=== PATIENT | male | born 1955 | race Two or more races ===

== ENCOUNTER 2016-05-12 15:03 | Inpatient (IN) | payer SELFPAY ==
[~2016-05-12] VITALS: Ht 188 cm; Wt 114.0 kg
[2016-05-12 15:26] LABS: Basophils # (auto) 0.1 uL; DEFINITIVE VIEW TRANSMISSION; Eosinophils # (auto) 0.1 uL; Hemoglobin 13.2 g/dL (13.5-17.5); Lymphocytes # (auto) 1.3 uL
[2016-05-12 15:29] LABS: Basophils % (auto) 0.6 % (0.0-2.0); Eosinophils % (auto) 1.3 % (0.0-7.0); Hematocrit 40.4 % (41.0-53.0); Lymphocytes % (auto) 15.1 % (10.0-50.0); Mean Corpuscular Hemoglobin 26.6 pg (28.0-32.0); Mean Corpuscular Hgb Conc. 32.7 g/dL (32.0-36.0); Mean Corpuscular Volume 81.4 fL (80.0-100.0); Mean Platelet Volume 8.2 fL (7.4-10.4); Monocytes % (auto) 11.7 % (0.0-12.0); Neutrophils # (auto) 6.1 uL; Neutrophils % (auto) 71.3 % (37.0-80.0); Platelet Count (auto) 275 10^3/uL (140-450); Red Cell Distribution Width 16.4 % (11.6-16.0); White Blood Cell 8.6 10^3/uL (4.4-10.8)
[2016-05-12 16:05] LABS: BUN/Creatinine Ratio 28.3; Calcium 9.5 mg/dL (8.5-10.1); Magnesium 2.4 mg/dL (1.6-2.6); Potassium 4.5 mmol/L (3.5-5.1)
[2016-05-12] MEDS ORDERED: ALBUTEROL SULF 2.5 MG/0.5ML(0.5%) NEB SOLN NEB ONE (16:45)
[2016-05-12] MEDS ORDERED: IPRATROPIUM BROM 0.5 MG/2.5ML INH SOL NEB ONE (16:45)
[2016-05-12] MEDS ORDERED: FUROSEMIDE 40 MG/4 ML VIAL ONE (16:55)
[2016-05-12] MEDS ORDERED: ASPirin 81 mg TAB ONE (16:55)
[2016-05-12] MEDS ORDERED: SODIUM CHLORIDE 0.9% 1,000 ML IV ONE (16:57)
[2016-05-12] MEDS ORDERED: FUROSEMIDE 40 MG/4 ML VIAL IV ONE (17:00)
[2016-05-12] MEDS ORDERED: ASPirin 325 MG TAB PO ONE (17:00)
[2016-05-12] MEDS ORDERED: SPIRONOLACTONE 25 MG TAB PO ONE (17:00)
[2016-05-12 17:45] LABS: INR 1.33 (0.9-1.15); Partial Thromboplastin Time 25.3 sec (22.64-33.71); Prothrombin Time 13.7 sec (9.37-12.3)
[2016-05-12 17:52] LABS: Albumin 3.5 g/dL (3.4-5.0); Total Protein 7.7 g/dL (6.4-8.2)
[2016-05-12 18:27] LABS: B-Type Natriuretic Peptide 1355.72 pg/mL (0-100); Temperature: 23.1 C (20.0-25.0)
[2016-05-12 18:33] LABS: Bilirubin, Direct 0.4 mg/dL (0-0.2)
[2016-05-12] MEDS ORDERED: cloNIDine HCL 0.1 MG TAB PO ONE (19:15)
[2016-05-12] MEDS ORDERED: ACETAMINOPHEN 500 MG TAB PO PRN (19:30)
[2016-05-12] MEDS ORDERED: NITROGLYCERIN 0.4 MG SL TAB SL PRN (19:30)
[2016-05-12] MEDS ORDERED: PROMETHAZINE HCL 25 MG/ML 1ML IV PRN (19:30)
[2016-05-12] MEDS ORDERED: LACTULOSE 20Gm/30ML SOLN PO PRN (19:30)
[2016-05-12] MEDS ORDERED: DEXTROSE (50%) 50ML SYRG IV PRN (19:30)
[2016-05-12] MEDS ORDERED: TEMAZEPAM 15 MG CAP PO PRN (19:30)
[2016-05-12] MEDS ORDERED: MORPHINE SULF INJ 2 MG/ML SYRINGE 1ML IV PRN ×2 (19:30)
[2016-05-12] MEDS ORDERED: ENOXAPARIN SOD 40 MG/0.4 ML SYRINGE SC ONE (19:36)
[2016-05-12 20:50] VITALS: BP 147/83
[2016-05-12 21:30] VITALS: BP 147/83
[2016-05-12 22:00] VITALS: BP 147/83
[2016-05-12] MEDS: SODIUM CHLOR 0.9% PF (SALINE LOCK) 10ML VIAL IV SCH (22:05)
[2016-05-12] MEDS: ACCU-CHEK COMFORT CURVE STRIP VI SCH (22:27)
[2016-05-12] MEDS: CARVEDILOL 3.125 MG TAB PO SCH (22:28)
[2016-05-12] MEDS: InsuLIN REG 1unit/0.01ml Soln (100units/ml) SC SCH (22:39)
[2016-05-12] MEDS ORDERED: FURO20TA PO (23:52)
[2016-05-12] MEDS ORDERED: ASPI81CH59 PO (23:52)
[2016-05-12 23:56] VITALS: BP 117/89
[2016-05-13] MEDS: LORazepam 0.5 MG TAB PO PRN ×3 (00:05→15:04)
[2016-05-13] MEDS ORDERED: IPRATROPIUM BROM 0.5 MG/2.5ML INH SOL ONE (00:52)
[2016-05-13] MEDS ORDERED: ALBUTEROL SULF 2.5 MG/0.5ML(0.5%) NEB SOLN ONE (00:52)
[2016-05-13 03:50] VITALS: BP 142/86
[2016-05-13] MEDS: SODIUM CHLOR 0.9% PF (SALINE LOCK) 10ML VIAL IV SCH ×3 (05:44→21:16)
[2016-05-13] MEDS: IPRATROPIUM BROM 0.5 MG/2.5ML INH SOL NEB PRN ×3 (06:01→18:19)
[2016-05-13] MEDS: ALBUTEROL SULF 2.5 MG/0.5ML(0.5%) NEB SOLN NEB PRN ×3 (06:02→18:18)
[2016-05-13 06:44] LABS: Basophils # (auto) 0 uL; Basophils % (auto) 0.5 % (0.0-2.0); DEFINITIVE VIEW TRANSMISSION; Eosinophils # (auto) 0.2 uL; Eosinophils % (auto) 2.7 % (0.0-7.0); Hematocrit 39.2 % (41.0-53.0); Hemoglobin 12.5 g/dL (13.5-17.5); Lymphocytes # (auto) 1.1 uL; Lymphocytes % (auto) 13.2 % (10.0-50.0); Mean Corpuscular Hemoglobin 26.3 pg (28.0-32.0); Mean Corpuscular Volume 82.1 fL (80.0-100.0); Mean Platelet Volume 8.3 fL (7.4-10.4); Monocytes # (auto) 0.9 uL; Monocytes % (auto) 9.9 % (0.0-12.0); Neutrophils # (auto) 6.3 uL; Neutrophils % (auto) 73.7 % (37.0-80.0); Platelet Count (auto) 248 10^3/uL (140-450); White Blood Cell 8.6 10^3/uL (4.4-10.8)
[2016-05-13] MEDS: InsuLIN REG 1unit/0.01ml Soln (100units/ml) SC SCH ×4 (06:44→21:59)
[2016-05-13] MEDS: ACCU-CHEK COMFORT CURVE STRIP VI SCH ×4 (06:44→21:16)
[2016-05-13 07:41] LABS: Albumin 3.1 g/dL (3.4-5.0); BUN/Creatinine Ratio 27.8; Calcium 8.5 mg/dL (8.5-10.1); Potassium 3.9 mmol/L (3.5-5.1); Total Protein 6.9 g/dL (6.4-8.2)
[2016-05-13 07:47] VITALS: BP 154/105
[2016-05-13] MEDS ORDERED: IOHEXOL 350 MG/ML 100ML IJ ONE (08:30)
[2016-05-13 08:40] LABS: B-Type Natriuretic Peptide 1096.86 pg/mL (0-100)
[2016-05-13] MEDS: NITROGLYCERIN 0.2MG/HR TOPICAL PATCH TD SCH (09:58)
[2016-05-13] MEDS: POTASSIUM CHL 20 Meq TABLET PO SCH (09:59)
[2016-05-13] MEDS: ASPirin 81 mg TAB PO SCH (09:59)
[2016-05-13] MEDS: ENALAPRIL MALEATE 2.5 MG TAB PO SCH (09:59)
[2016-05-13] MEDS: ENOXAPARIN SOD 40 MG/0.4 ML SYRINGE SC SCH (09:59)
[2016-05-13] MEDS: CARVEDILOL 3.125 MG TAB PO SCH (10:00)
[2016-05-13] MEDS ORDERED: FUROSEMIDE 40 MG/4 ML VIAL IV SCH (10:00)
[2016-05-13 11:39] VITALS: BP 152/98
[2016-05-13] MEDS ORDERED: DIGOXIN 0.25 MG TAB PO ONE (14:15)
[2016-05-13] MEDS: HYDROcodone-ACET 5/325MG TAB PO PRN (15:04)
[2016-05-13 16:00] VITALS: BP 138/89
[2016-05-13] MEDS: SPIRONOLACTONE 25 MG TAB PO SCH (18:00)
[2016-05-13 19:50] LABS: Calcium 8.5 mg/dL (8.5-10.1); Potassium 4.1 mmol/L (3.5-5.1)
[2016-05-13 20:00] VITALS: BP 158/112
[2016-05-13 20:34] VITALS: BP 138/89
[2016-05-13] MEDS: FUROSEMIDE 40 MG/4 ML VIAL IV SCH (21:16)
[2016-05-14 00:04] VITALS: BP 165/85
[2016-05-14] MEDS: LORazepam 0.5 MG TAB PO PRN ×3 (01:55→23:56)
[2016-05-14] MEDS: SODIUM CHLOR 0.9% PF (SALINE LOCK) 10ML VIAL IV SCH ×4 (05:02→23:56)
[2016-05-14] MEDS: SPIRONOLACTONE 25 MG TAB PO SCH ×2 (05:02→18:20)
[2016-05-14] MEDS: InsuLIN REG 1unit/0.01ml Soln (100units/ml) SC SCH ×4 (06:10→21:48)
[2016-05-14] MEDS: ACCU-CHEK COMFORT CURVE STRIP VI SCH ×4 (06:10→21:00)
[2016-05-14] MEDS: ENOXAPARIN SOD 40 MG/0.4 ML SYRINGE SC SCH (10:12)
[2016-05-14] MEDS: NITROGLYCERIN 0.2MG/HR TOPICAL PATCH TD SCH (10:12)
[2016-05-14] MEDS: ASPirin 81 mg TAB PO SCH (10:15)
[2016-05-14] MEDS: ENALAPRIL MALEATE 2.5 MG TAB PO SCH (10:16)
[2016-05-14] MEDS: FUROSEMIDE 40 MG/4 ML VIAL IV SCH (10:16)
[2016-05-14] MEDS: POTASSIUM CHL 20 Meq TABLET PO SCH (10:16)
[2016-05-14] MEDS: DIGOXIN 0.25 MG TAB PO SCH (10:17)
[2016-05-14] MEDS: NICOTINE 7MG/24HR TOPICAL PATCH TD SCH (18:21)
[2016-05-14 19:56] VITALS: BP 144/92
[2016-05-15] MEDS: IPRATROPIUM BROM 0.5 MG/2.5ML INH SOL NEB PRN ×2 (01:41→21:25)
[2016-05-15] MEDS: ALBUTEROL SULF 2.5 MG/0.5ML(0.5%) NEB SOLN NEB PRN ×3 (01:41→21:25)
[2016-05-15] MEDS: SPIRONOLACTONE 25 MG TAB PO SCH ×2 (05:16→18:26)
[2016-05-15] MEDS: InsuLIN REG 1unit/0.01ml Soln (100units/ml) SC SCH ×4 (05:49→20:04)
[2016-05-15] MEDS: ACCU-CHEK COMFORT CURVE STRIP VI SCH ×4 (05:50→19:50)
[2016-05-15 06:55] LABS: BUN/Creatinine Ratio 23.7; Calcium 8.4 mg/dL (8.5-10.1); Potassium 4.1 mmol/L (3.5-5.1)
[2016-05-15] MEDS: POTASSIUM CHL 20 Meq TABLET PO SCH (08:58)
[2016-05-15] MEDS: ASPirin 81 mg TAB PO SCH (08:58)
[2016-05-15 09:00] VITALS: BP 157/97
[2016-05-15] MEDS: NITROGLYCERIN 0.2MG/HR TOPICAL PATCH TD SCH (09:00)
[2016-05-15] MEDS: NICOTINE 7MG/24HR TOPICAL PATCH TD SCH (09:00)
[2016-05-15] MEDS: DIGOXIN 0.25 MG TAB PO SCH (09:01)
[2016-05-15] MEDS: ENOXAPARIN SOD 40 MG/0.4 ML SYRINGE SC SCH (09:01)
[2016-05-15] MEDS: ENALAPRIL MALEATE 2.5 MG TAB PO SCH (09:02)
[2016-05-15 13:00] VITALS: BP 155/106
[2016-05-15] MEDS ORDERED: FUROSEMIDE 20 MG/2 ML VIAL IV ONE (13:45)
[2016-05-15] MEDS: SODIUM CHLOR 0.9% PF (SALINE LOCK) 10ML VIAL IV SCH ×2 (14:00→19:49)
[2016-05-15] MEDS: LORazepam 0.5 MG TAB PO PRN (14:19)
[2016-05-15 17:23] VITALS: BP 160/96
[2016-05-15 22:00] VITALS: BP 163/107
[2016-05-16] MEDS: HYDROcodone-ACET 5/325MG TAB PO PRN (01:50)
[2016-05-16] MEDS: IPRATROPIUM BROM 0.5 MG/2.5ML INH SOL NEB PRN (02:25)
[2016-05-16] MEDS: ALBUTEROL SULF 2.5 MG/0.5ML(0.5%) NEB SOLN NEB PRN (02:25)
[2016-05-16] MEDS: SODIUM CHLOR 0.9% PF (SALINE LOCK) 10ML VIAL IV SCH ×2 (05:49→14:00)
[2016-05-16] MEDS: SPIRONOLACTONE 25 MG TAB PO SCH (05:49)
[2016-05-16] MEDS: InsuLIN REG 1unit/0.01ml Soln (100units/ml) SC SCH ×2 (05:54→11:30)
[2016-05-16] MEDS: ACCU-CHEK COMFORT CURVE STRIP VI SCH ×2 (05:54→11:30)
[2016-05-16 06:00] VITALS: BP 137/93
[2016-05-16 07:46] LABS: Basophils # (auto) 0 uL; Basophils % (auto) 0.2 % (0.0-2.0); DEFINITIVE VIEW TRANSMISSION; Eosinophils # (auto) 0.2 uL; Eosinophils % (auto) 1.3 % (0.0-7.0); Hematocrit 39.1 % (41.0-53.0); Hemoglobin 12.5 g/dL (13.5-17.5); Lymphocytes # (auto) 0.8 uL; Lymphocytes % (auto) 5.8 % (10.0-50.0); Mean Corpuscular Hgb Conc. 31.9 g/dL (32.0-36.0); Mean Corpuscular Volume 81.4 fL (80.0-100.0); Mean Platelet Volume 7.8 fL (7.4-10.4); Monocytes # (auto) 1.4 uL; Monocytes % (auto) 9.8 % (0.0-12.0); Neutrophils # (auto) 11.8 uL; Neutrophils % (auto) 82.9 % (37.0-80.0); Platelet Count (auto) 227 10^3/uL (140-450); White Blood Cell 14.2 10^3/uL (4.4-10.8)
[2016-05-16 08:01] LABS: INR 1.2 (0.9-1.15); Prothrombin Time 12.4 sec (9.37-12.3)
[2016-05-16 08:20] LABS: Calcium 8.3 mg/dL (8.5-10.1); Magnesium 2.3 mg/dL (1.6-2.6)
[2016-05-16 08:23] LABS: BUN/Creatinine Ratio 17.4
[2016-05-16 09:00] VITALS: BP 156/110
[2016-05-16] MEDS: POTASSIUM CHL 20 Meq TABLET PO SCH (09:15)
[2016-05-16] MEDS: ASPirin 81 mg TAB PO SCH (09:16)
[2016-05-16] MEDS: NICOTINE 7MG/24HR TOPICAL PATCH TD SCH (09:17)
[2016-05-16] MEDS: NITROGLYCERIN 0.2MG/HR TOPICAL PATCH TD SCH (09:18)
[2016-05-16] MEDS: ENALAPRIL MALEATE 2.5 MG TAB PO SCH (09:19)
[2016-05-16] MEDS: DIGOXIN 0.25 MG TAB PO SCH (09:19)
[2016-05-16] MEDS: ENOXAPARIN SOD 40 MG/0.4 ML SYRINGE SC SCH (09:20)
[2016-05-16] MEDS ORDERED: FUROSEMIDE 20 MG/2 ML VIAL IV SCH (10:00)
[2016-05-16] MEDS: LORazepam 0.5 MG TAB PO PRN (11:52)
[2016-05-16 13:00] VITALS: BP 151/90
[2016-05-16] MEDS ORDERED: HYDROcodone-ACET 5/325MG TAB PO PRN (13:00)
[2016-05-16 14:12] VITALS: BP 156/110
== END 2016-05-16 15:00 | disposition home or self-care (01) | DRG 280 ==
LOC: ER 15:06 → TELE 15:07 → DOU IN ICU 20:56 → TELE-EAST 05-14 22:28
PROVIDERS: ADMIT Internal Medicine; ATTEND Internal Medicine Pulmonary Disease
DX: I21.4 Non-ST elevation (NSTEMI) myocardial infarction (principal); I50.41 Acute combined systolic (congestive) and diastolic (congestive) heart failure; I42.0 Dilated cardiomyopathy; I13.0 Hypertensive heart and chronic kidney disease with heart failure and stage 1 through stage 4 chronic kidney disease, or unspecified chronic kidney disease; E11.22 Type 2 diabetes mellitus with diabetic chronic kidney disease; F15.90 Other stimulant use, unspecified, uncomplicated; E66.01 Morbid (severe) obesity due to excess calories; J39.8 Other specified diseases of upper respiratory tract; N18.2 Chronic kidney disease, stage 2 (mild); I44.7 Left bundle-branch block, unspecified; F17.210 Nicotine dependence, cigarettes, uncomplicated; Z80.0 Family history of malignant neoplasm of digestive organs; Z80.1 Family history of malignant neoplasm of trachea, bronchus and lung; Z90.89 Acquired absence of other organs; Z68.32 Body mass index [BMI] 32.0-32.9, adult
CPT/HCPCS: 36415; 36600; 51702; 71010; 71275; 80048; 80053; 80061; 80076; 82140; 82550; 82805; 82962; 83036; 83735; 83880; 84443; 84484; 85025; 85379; 85610; 85652; 85730; 86141; 87081; 93005; 93306; 93970; 94640; 94761; 96372; 96374; G0434; J1815

== ENCOUNTER 2016-07-28 02:05 | Inpatient (IN) | payer SELFPAY ==
[~2016-07-28] VITALS: Ht 188 cm; Wt 107.6 kg
[~2016-07-28 02:05] MED LIST: ASPI81CH59 PO; FURO20TA PO
[2016-07-28 02:41] LABS: DEFINITIVE VIEW TRANSMISSION; Hematocrit 36.2 % (41.0-53.0); Hemoglobin 11.7 g/dL (13.5-17.5); Mean Corpuscular Hemoglobin 25.9 pg (28.0-32.0); Mean Corpuscular Hgb Conc. 32.3 g/dL (32.0-36.0); Mean Corpuscular Volume 80.3 fL (80.0-100.0); Mean Platelet Volume 8.9 fL (7.4-10.4); Platelet Count (auto) 167 10^3/uL (140-450); SUSPECT VIEW TRANSMISSION; White Blood Cell 9.7 10^3/uL (4.4-10.8)
[2016-07-28 02:44] LABS: Red Cell Distribution Width 25.8 % (11.6-16.0)
[2016-07-28 02:45] LABS: Metamyelocytes % 0; Myelocytes % 0; Promyelocytes % 0; Reactive Lymphocytes 0
[2016-07-28 02:54] LABS: Anisocytosis Moderate; Hypersegmented Neutrophils Present; Platelet Estimate Adequate
[2016-07-28 02:55] LABS: Microcytosis Slight; Ovalocytes FEW
[2016-07-28 02:56] LABS: INR 1.14 (0.9-1.15); Partial Thromboplastin Time 25.7 sec (22.64-33.71); Prothrombin Time 12.3 sec (9.37-12.3)
[2016-07-28 02:58] LABS: Temperature: 21.8 C (20.0-25.0)
[2016-07-28 03:04] LABS: Albumin 3.3 g/dL (3.4-5.0); BUN/Creatinine Ratio 31.2; Calcium 8.3 mg/dL (8.5-10.1); Potassium 4.5 mmol/L (3.5-5.1)
[2016-07-28 03:20] LABS: Bilirubin, Total 0.5 mg/dL (0.2-1.0); Total Protein 6.6 g/dL (6.4-8.2)
[2016-07-28] MEDS ORDERED: FUROSEMIDE 40 MG/4 ML VIAL IV ONE ×2 (04:30→09:30)
[2016-07-28] MEDS ORDERED: cloNIDine HCL 0.1 MG TAB PO PRN (06:30)
[2016-07-28] MEDS ORDERED: MORPHINE SULF INJ 2 MG/ML SYRINGE 1ML IV PRN (06:30)
[2016-07-28] MEDS ORDERED: NITROGLYCERIN 0.4 MG SL TAB SL PRN (06:30)
[2016-07-28] MEDS ORDERED: ACETAMINOPHEN 325 MG TAB PO PRN (06:30)
[2016-07-28] MEDS ORDERED: TEMAZEPAM 15 MG CAP PO PRN (06:30)
[2016-07-28] MEDS ORDERED: ONDANSETRON HCL 4 MG/2 ML VIAL IV PRN (06:30)
[2016-07-28] MEDS ORDERED: DEXTROSE (50%) 50ML SYRG IV PRN (06:30)
[2016-07-28] MEDS: SPIRONOLACTONE 25 MG TAB PO SCH (07:57)
[2016-07-28] MEDS: DIGOXIN 0.25 MG TAB PO SCH (07:57)
[2016-07-28] MEDS: ASPirin 81 mg TAB PO SCH (07:57)
[2016-07-28] MEDS: FAMOTIDINE 20 MG TAB PO SCH ×2 (07:58→21:35)
[2016-07-28] MEDS: ENALAPRIL MALEATE 2.5 MG TAB PO SCH (07:58)
[2016-07-28] MEDS: ENOXAPARIN SOD 40 MG/0.4 ML SYRINGE SC SCH (07:59)
[2016-07-28] MEDS: LABETALOL HCL 5 MG/ML 4ML SYRINGE IV PRN (09:14)
[2016-07-28 09:37] LABS: Blood 02Sat 94.6 % (96-100); Blood AaDO2 91.9 mmHg (<26.0); Blood MetHb 0.4 % (0.0-1.5); HCO3 19.5 mmol/L (22-26.0); MODE NASAL CANNULA; O2Hb 93.7 % (95.0-100.0); PCO2 38.4 mmHg (35.0-45.0); PO2 91.3 mmHg (65.0-85.0); Room 1014-ERT; Sample Type Arterial; pH 7.323 (7.350-7.450)
[2016-07-28 11:39] LABS: Blood COHb 0.6 % (0.5-1.5)
[2016-07-28] MEDS: InsuLIN REG 1unit/0.01ml Soln (100units/ml) SC SCH ×2 (12:00→17:32)
[2016-07-28] MEDS: ACCU-CHEK COMFORT CURVE STRIP VI SCH ×2 (12:16→17:32)
[2016-07-28] MEDS: FUROSEMIDE 20 MG TAB PO SCH (17:34)
[2016-07-28] MEDS: HYDROcodone-ACET 5/325MG TAB PO PRN ×2 (17:34→21:35)
[2016-07-28 19:00] VITALS: BP 154/93
[2016-07-28 20:00] VITALS: BP 154/93
[2016-07-28] MEDS ORDERED: ENAL2.5T PO (20:05)
[2016-07-28] MEDS ORDERED: DIGO0.2570 PO (20:05)
[2016-07-28] MEDS ORDERED: SPIR25TA89 PO (20:05)
[2016-07-28] MEDS ORDERED: LOR05T PO (20:05)
[2016-07-28 22:00] VITALS: BP 136/87
[2016-07-29] VITALS (7 sets, daily range): BP systolic 126–156; BP diastolic 85–101
[2016-07-29] MEDS: ACCU-CHEK COMFORT CURVE STRIP VI SCH ×5 (00:12→21:46)
[2016-07-29 05:05] LABS: DEFINITIVE VIEW TRANSMISSION; Hematocrit 36.9 % (41.0-53.0); Mean Corpuscular Hemoglobin 25.8 pg (28.0-32.0); Mean Corpuscular Hgb Conc. 32.5 g/dL (32.0-36.0); Mean Corpuscular Volume 79.4 fL (80.0-100.0); Mean Platelet Volume 8.3 fL (7.4-10.4); Platelet Count (auto) 199 10^3/uL (140-450); SUSPECT VIEW TRANSMISSION; White Blood Cell 9.3 10^3/uL (4.4-10.8)
[2016-07-29 05:12] LABS: Red Cell Distribution Width 26.3 % (11.6-16.0)
[2016-07-29 05:13] LABS: Metamyelocytes % 0; Myelocytes % 0; Promyelocytes % 0; Reactive Lymphocytes 0
[2016-07-29 05:30] LABS: Albumin 3.3 g/dL (3.4-5.0); Calcium 8.1 mg/dL (8.5-10.1); Magnesium 1.8 mg/dL (1.6-2.6); Potassium 3.7 mmol/L (3.5-5.1)
[2016-07-29 05:33] LABS: BUN/Creatinine Ratio 32.5
[2016-07-29] MEDS: InsuLIN REG 1unit/0.01ml Soln (100units/ml) SC SCH ×5 (05:44→21:46)
[2016-07-29] MEDS: FUROSEMIDE 20 MG TAB PO SCH ×2 (05:44→17:19)
[2016-07-29 05:49] LABS: Bilirubin, Total 0.8 mg/dL (0.2-1.0); Total Protein 6.4 g/dL (6.4-8.2)
[2016-07-29 06:42] LABS: Anisocytosis Moderate; Hypersegmented Neutrophils Present; Microcytosis Slight; Ovalocytes FEW; Platelet Estimate Adequate
[2016-07-29] MEDS: ASPirin 81 mg TAB PO SCH (08:16)
[2016-07-29] MEDS: DIGOXIN 0.25 MG TAB PO SCH (08:17)
[2016-07-29] MEDS: SPIRONOLACTONE 25 MG TAB PO SCH (08:18)
[2016-07-29] MEDS: ENOXAPARIN SOD 40 MG/0.4 ML SYRINGE SC SCH (08:18)
[2016-07-29] MEDS: ENALAPRIL MALEATE 2.5 MG TAB PO SCH (08:18)
[2016-07-29] MEDS: FAMOTIDINE 20 MG TAB PO SCH ×2 (08:18→21:46)
[2016-07-29] MEDS: HYDROcodone-ACET 5/325MG TAB PO PRN ×3 (08:21→17:18)
[2016-07-29] MEDS: LABETALOL HCL 5 MG/ML 4ML SYRINGE IV PRN (11:59)
[2016-07-29] MEDS ORDERED: DEXTROSE (50%) 50ML SYRG IV PRN (14:00)
[2016-07-29] MEDS ORDERED: POTASSIUM CHL 20 Meq TABLET PO ONE (14:00)
[2016-07-29] MEDS ORDERED: ENALAPRIL MALEATE 2.5 MG TAB PO ONE (14:00)
[2016-07-29] MEDS ORDERED: MAGNESIUM SULFATE 1GM/100ML 100 ML IV ONE (14:00)
[2016-07-29] MEDS ORDERED: IPRATROPIUM BROM 0.5 MG/2.5ML INH SOL NEB PRN (15:30)
[2016-07-29] MEDS ORDERED: MULTIPLE VITAMINS W/ MINERALS TAB PO SCH (17:06)
[2016-07-29] MEDS ORDERED: ASCORBIC ACID 500 MG TAB PO SCH (22:00)
[2016-07-30 05:11] VITALS: BP 149/80
[2016-07-30] MEDS: ACCU-CHEK COMFORT CURVE STRIP VI SCH (06:21)
[2016-07-30] MEDS: InsuLIN REG 1unit/0.01ml Soln (100units/ml) SC SCH (06:21)
[2016-07-30] MEDS: FUROSEMIDE 20 MG TAB PO SCH (06:22)
[2016-07-30 06:31] LABS: Albumin 3.2 g/dL (3.4-5.0); BUN/Creatinine Ratio 33.3; Calcium 8.1 mg/dL (8.5-10.1); Magnesium 2.2 mg/dL (1.6-2.6); Total Protein 6.8 g/dL (6.4-8.2)
[2016-07-30] MEDS ORDERED: ENALAPRIL MALEATE 2.5 MG TAB PO SCH (10:00)
== END 2016-07-30 07:20 | disposition left against medical advice (07) | DRG 291 ==
LOC: ER 02:05 → TELE 02:06 → TELE-EAST 19:18
PROVIDERS: ADMIT Nurse Practitioner; ATTEND Internal Medicine
DX: I13.0 Hypertensive heart and chronic kidney disease with heart failure and stage 1 through stage 4 chronic kidney disease, or unspecified chronic kidney disease (principal); I50.43 Acute on chronic combined systolic (congestive) and diastolic (congestive) heart failure; E11.22 Type 2 diabetes mellitus with diabetic chronic kidney disease; E11.621 Type 2 diabetes mellitus with foot ulcer; F17.210 Nicotine dependence, cigarettes, uncomplicated; L97.519 Non-pressure chronic ulcer of other part of right foot with unspecified severity; L97.529 Non-pressure chronic ulcer of other part of left foot with unspecified severity; N18.3 Chronic kidney disease, stage 3 (moderate); Z91.19 Patient's noncompliance with other medical treatment and regimen; F15.10 Other stimulant abuse, uncomplicated; Z80.9 Family history of malignant neoplasm, unspecified; Z80.1 Family history of malignant neoplasm of trachea, bronchus and lung; Z80.0 Family history of malignant neoplasm of digestive organs
CPT/HCPCS: 36415; 36600; 71010; 80053; 80162; 80307; 82805; 82962; 83036; 83735; 83880; 84484; 85007; 85027; 85610; 85730; 96374; 96376; J3490

== ENCOUNTER 2018-03-09 19:48 | Emergency (ER) | payer MEDICAID ==
[~2018-03-09] VITALS: Ht 188 cm; Wt 117.9 kg
[~2018-03-09 19:48] MED LIST changes: +CARV25TA55 PO; -FURO20TA PO; +FURO40TA4 PO; +LISI-646 PO; +SIMV-8 PO
[2018-03-09] MEDS ORDERED: SILVER SULFADIAZINE 1 % TOPICAL CREAM 50GM TOP ONE (21:30)
[2018-03-09 21:56] VITALS: BP 157/94
== END 2018-03-09 23:30 | disposition home or self-care (01) ==
LOC: ER 19:48 → EDBD 19:48 → ER 23:30
DX: T20.10XA Burn of first degree of head, face, and neck, unspecified site, initial encounter (principal); T31.0 Burns involving less than 10% of body surface; E11.9 Type 2 diabetes mellitus without complications; I11.0 Hypertensive heart disease with heart failure; I50.9 Heart failure, unspecified; F17.210 Nicotine dependence, cigarettes, uncomplicated; Z79.82 Long term (current) use of aspirin; Z79.899 Other long term (current) drug therapy; X08.8XXA Exposure to other specified smoke, fire and flames, initial encounter; Y93.89 Activity, other specified; Y99.8 Other external cause status; Y92.89 Other specified places as the place of occurrence of the external cause
CPT/HCPCS: 16000

== ENCOUNTER 2018-05-09 09:36 | Inpatient (IN) | payer SELFPAY ==
[~2018-05-09] VITALS: Ht 182.9 cm; Wt 116.9 kg
[2018-05-09] MEDS ORDERED: MORPHINE SULFATE 4 MG/ML SYR/VIAL IV ONE (10:15)
[2018-05-09] MEDS ORDERED: ONDANSETRON HCL 4 MG/2 ML VIAL IV ONE (10:15)
[2018-05-09 12:14] LABS: Basophils # (auto) 0.1 uL; Eosinophils # (auto) 0.2 uL; Mean Corpuscular Hemoglobin 29.2 pg (28.0-32.0); Monocytes % (auto) 6.4 % (0.0-12.0); Neutrophils # (auto) 12.3 uL
[2018-05-09 12:16] LABS: Basophils % (auto) 0.7 % (0.0-2.0); Eosinophils % (auto) 1.6 % (0.0-7.0); Hematocrit 51.5 % (41.0-53.0); Hemoglobin 17.6 g/dL (13.5-17.5); Lymphocytes # (auto) 1.2 uL; Lymphocytes % (auto) 8.4 % (10.0-50.0); Mean Corpuscular Hgb Conc. 34.2 g/dL (32.0-36.0); Mean Corpuscular Volume 85.4 fL (80.0-100.0); Monocytes # (auto) 0.9 uL; Neutrophils % (auto) 82.9 % (37.0-80.0); Nucleated Red Blood Cells % 0.9 %; Platelet Count (auto) 258 10^3/uL (140-450); Red Blood Cells 6.03 10^6/uL (4.5-5.90); Red Cell Distribution Width 14.1 % (11.8-14.3); White Blood Cell 14.8 10^3/uL (4.4-10.8)
[2018-05-09 12:29] LABS: INR 0.95 (0.9-1.15); Partial Thromboplastin Time 26.5 sec (23.78-33.04); Prothrombin Time 10.2 sec (9.27-12.13)
[2018-05-09 12:30] LABS: Magnesium 2.5 mg/dL (1.6-2.6); Potassium 3.8 mmol/L (3.5-5.1)
[2018-05-09 12:34] LABS: BUN/Creatinine Ratio 18.2; Bilirubin, Total 0.4 mg/dL (0.2-1.0); Total Protein 8.7 g/dL (6.4-8.2)
[2018-05-09] MEDS ORDERED: MORPHINE SULFATE 4 MG/ML SYR/VIAL IV PRN (15:00)
[2018-05-09] MEDS ORDERED: NITROGLYCERIN 0.4 MG SL TAB SL PRN (15:00)
[2018-05-09] MEDS ORDERED: HYDROcodone-ACET 5/325MG TAB PO PRN (15:00)
[2018-05-09] MEDS ORDERED: ONDANSETRON HCL 4 MG/2 ML VIAL IV PRN (15:00)
[2018-05-09] MEDS ORDERED: IPRATROPIUM BROM 0.5 MG/2.5ML INH SOL NEB SCH (15:00)
[2018-05-09] MEDS ORDERED: ACETAMINOPHEN 500 MG TAB PO PRN (15:00)
[2018-05-09] MEDS ORDERED: ALBUTEROL SULF 2.5 MG/0.5ML(0.5%) NEB SOLN NEB SCH (15:00)
[2018-05-09] MEDS ORDERED: hydrALAZINE HCL 20 MG/ML VL IV ONE (15:30)
[2018-05-09] MEDS ORDERED: CARVEDILOL 3.125 MG TAB PO ONE (15:30)
[2018-05-09 15:45] LABS: Alcohol, Urine < 3.0 mg/dL (0-5); Amphetamine Screen, Urine POSITIVE (NEGATIVE); Barbiturate Scree,Urine NEGATIVE (NEGATIVE); Benzodiazephine Screen, Urine NEGATIVE (NEGATIVE); Cannabinoid Screen, Urine NEGATIVE (NEGATIVE); Cocaine Screen, Urine NEGATIVE (NEGATIVE); Opiate Scree,Urine NEGATIVE (NEGATIVE); Phencyclidine Screen, Urine NEGATIVE (NEGATIVE)
[2018-05-09 15:47] LABS: Urine Bacteria NONE SEEN /hpf (None Seen); Urine Blood TRACE /uL (Negative); Urine Specific Gravity 1.022 (1.001-1.035); Urine WBC 1 /hpf (0 - 3)
[2018-05-09] MEDS: MORPHINE SULF INJ 2 MG/ML SYRINGE 1ML IV PRN ×2 (16:14→20:42)
[2018-05-09] MEDS: HYDROmorphone HCL 2 MG/ML VL IV PRN ×2 (17:05→21:51)
[2018-05-09] MEDS ORDERED: ATORVASTATIN 20 MG TAB PO SCH (18:00)
[2018-05-09] MEDS: IPRATROPIUM BROM 0.5 MG/2.5ML INH SOL NEB SCH (19:13)
[2018-05-09] MEDS: ALBUTEROL SULF 2.5 MG/0.5ML(0.5%) NEB SOLN NEB SCH (19:14)
--- NOTE | 2018-05-09 20:30 | NUR ---
OPENING NOTE RECEIVED PATIENT FROM ER. PATIENT SHOWING MILD DISTRESS DUE TO PAIN. NO SHORTNESS OF BREATH NOTED. PATIENT ORIENTED TO HOSPITAL AND PLAN OF CARE FOR THE NIGHT. PATIENT VERBALIZED UNDERSTANDING. PATIENT WILL BE GIVEN PAIN MEDICATION WHEN AVAILABLE. BED LOWERED, CALL LIGHT WITHIN REACH, AND PATIENT WILL BE ROUNDED ON EVERY HOUR AND NEEDED.
[2018-05-09 21:00] VITALS: BP 157/106
[2018-05-09] MEDS: CARVEDILOL 3.125 MG TAB PO SCH (22:35)
[2018-05-10] VITALS (7 sets, daily range): BP systolic 128–157; BP diastolic 58–113
[2018-05-10] MEDS: MORPHINE SULF INJ 2 MG/ML SYRINGE 1ML IV PRN ×2 (05:05→13:32)
[2018-05-10] MEDS: ALBUTEROL SULF 2.5 MG/0.5ML(0.5%) NEB SOLN NEB SCH ×5 (06:29→21:41)
[2018-05-10] MEDS: IPRATROPIUM BROM 0.5 MG/2.5ML INH SOL NEB SCH ×5 (06:29→21:41)
[2018-05-10 07:00] LABS: Basophils # (auto) 0.1 uL; Basophils % (auto) 0.9 % (0.0-2.0); Eosinophils # (auto) 0.3 uL; Eosinophils % (auto) 2.6 % (0.0-7.0); Hematocrit 47.5 % (41.0-53.0); Hemoglobin 16.1 g/dL (13.5-17.5); Lymphocytes # (auto) 1.2 uL; Lymphocytes % (auto) 12.1 % (10.0-50.0); Mean Corpuscular Hemoglobin 29.4 pg (28.0-32.0); Mean Corpuscular Volume 86.4 fL (80.0-100.0); Monocytes # (auto) 0.8 uL; Monocytes % (auto) 8.8 % (0.0-12.0); Neutrophils # (auto) 7.3 uL; Neutrophils % (auto) 75.6 % (37.0-80.0); Nucleated Red Blood Cells % 0.2 %; Platelet Count (auto) 221 10^3/uL (140-450); Red Cell Distribution Width 14.3 % (11.8-14.3); White Blood Cell 9.6 10^3/uL (4.4-10.8)
[2018-05-10 07:12] LABS: Magnesium 2.2 mg/dL (1.6-2.6)
--- NOTE | 2018-05-10 07:15 | NUR ---
Opening Shift Note Assumed care of patient, awake and alert. No S/S of distress/SOB or pain. Instructed on POC and to call for assist PRN, will continue to monitor for changes Q1hr and PRN. Bed locked in lowest position with two side rails up and call light in reach.
[2018-05-10 07:18] LABS: BUN/Creatinine Ratio 19.8; Calcium 8.4 mg/dL (8.5-10.1)
[2018-05-10] MEDS: HYDROmorphone HCL 2 MG/ML VL IV PRN ×2 (09:40→16:53)
[2018-05-10] MEDS: FUROSEMIDE 40 MG TAB PO SCH (09:42)
[2018-05-10] MEDS: ASPirin 81 mg TAB PO SCH (09:42)
[2018-05-10] MEDS: CARVEDILOL 3.125 MG TAB PO SCH ×2 (09:43→22:08)
[2018-05-10] MEDS: LISINOPRIL 20 MG TAB PO SCH (09:43)
[2018-05-10] MEDS ORDERED: cefTRIAXone 1GM/50ML D5W 50 ML IV SCH (10:00)
[2018-05-10] MEDS ORDERED: AZITHROMYCIN 500MG/ 250ML 250 ML IV SCH (10:00)
[2018-05-10] MEDS ORDERED: LORazepam 2MG/ML-1ML VIAL IV ONE (14:00)
--- NOTE | 2018-05-10 16:32 | NUR ---
SANCHEZ 16 FR INSERTED USING STERILE TECHNIQUE, PER ORDERS. PATIENT TOLERATED WELL NO SIGNS AND SYMPTOMS OF DISTRESS NOTED.
--- NOTE | 2018-05-10 19:05 | NUR ---
Opening Shift Note Bed side report with day LLUVIA Childs. Assumed care of patient, pt resting No S/S of distress/SOB or pain noted. Updated on POC and to call for assist PRN, will continue to monitor for changes Q1hr and PRN. Pt on 2 L NC, Bed locked and in lowest position, call light within reach.
--- NOTE | 2018-05-10 22:20 | NUR ---
CALLED FRONT END ALIGNMENT SPECIALIST Informed charge entry specialist in regards to pt change in status Altered, Pt was able to answer questions but then will state "i am home, or don't drop me", V/s Spo2 95 % T98.4, HR 86, RR 20 BP 144/89 will continue to monitor pt.
--- NOTE | 2018-05-10 22:27 | NUR ---
PAGED RT Paged RT in regards to CPAP initiation, will continue to monitor pt.
--- NOTE | 2018-05-10 22:27 | NUR ---
PAGED DR. ZAMBRANO will continue to monitor pt.
--- NOTE | 2018-05-10 22:28 | NUR ---
DR. ZAMBRANO CALL BACK Informed Dr. Zambrano in regards to change in status, Dr. lopez TELEPHONE ORDER READ BACK HALDOL 2.5 MG IM q8 PRN for agitation. will continue to monitor pt
[2018-05-10] MEDS ORDERED: HALOPERIDOL LACTATE 5 MG/ML INJ VIAL IM PRN (22:45)
--- NOTE | 2018-05-11 00:01 | NUR ---
PT REMOVED CPAP PT removed CPAP. reoriented pt reason for cpap. pt agreed to put CPAP back on. PT spo2 94%, HR 84 Will continue to monitor pt.
--- NOTE | 2018-05-11 00:48 | NUR ---
Respiratory note: RN CORINNA REMOVED PT OFF CPAP. PT STATED THAT IT FELT IF IT WAS SUCKING AIR OUT OF HIM AND WAS NO LONGER COMFORTABLE WITH IT ON. PT WAS PLACED BACK ON 2 L/M NC: HR 77, RR 20, SPO2 95%. PT SHOWS NO S/S OF ANY RESPIRATORY DISTRESS. WILL CONTINUE TO MONITOR.
--- NOTE | 2018-05-11 00:50 | NUR ---
PAGED RT PT felt uncomfortable with CPAP, Removed CPAP, paged RT
[2018-05-11] MEDS: MORPHINE SULF INJ 2 MG/ML SYRINGE 1ML IV PRN ×3 (03:09→16:30)
--- NOTE | 2018-05-11 03:10 | NUR ---
PT UNCOMFORTABLE Pt attempted to removed NC, was reinstructed to maintain oxygen on. PT accepted oxygen. Pt complaining pillow was sticking to him, pillowcase was off due to movement of pt, new pillowcases on with a draw sheet over to prevent from sticking to pt. Pt states temperature of room too hot, informed pt can remove one blanket and adjust temperature to a comfortable setting, pt stated no its ok. Pt states "will leave if continues to be uncomfortable" Asked pt what else can i do to help pt be more comfortable. Pt asked for pain med, let him know he does have pain med available will administer per MD order. Asked pt if would like to repositioned, pt stated no. will continue to monitor pt.
--- NOTE | 2018-05-11 03:42 | NUR ---
PT ROUNDS PT Resting, no s/sx's of distress or sob noted
[2018-05-11 05:00] VITALS: BP 123/76
--- NOTE | 2018-05-11 05:10 | NUR ---
TRANSPORT ENGINEER CALL Adhesive Bandage Making Operator Joshua Jones reported Blood culture tested Positive Grab Positive Cocci in clusters will page hospitalist
--- NOTE | 2018-05-11 05:14 | NUR ---
CALL FROM HOSPITALIST Inform hospitalist in regards to positive blood culture. Hospitalist will review patient's labs will continue to monitor pt.
[2018-05-11] MEDS: HYDROmorphone HCL 2 MG/ML VL IV PRN (06:10)
[2018-05-11] MEDS: ALBUTEROL SULF 2.5 MG/0.5ML(0.5%) NEB SOLN NEB SCH ×3 (07:09→19:33)
[2018-05-11] MEDS: IPRATROPIUM BROM 0.5 MG/2.5ML INH SOL NEB SCH ×3 (07:09→19:33)
--- NOTE | 2018-05-11 07:09 | NUR ---
RT NOTE: PT REFUSED TX AT THIS TIME. NO SIGNS OF RESPIRATORY DISTRESS NOTED. LUNG SOUNDS CLEAR DIMINISHED T/O. ON 2L NC SPO2 97 HR 88 RR 18. PT AWARE THAT I WILL RETURN FOR NEXT SCHEDULED TX. WILL CONTINUE TO MONITOR.
[2018-05-11 07:40] VITALS: BP 162/83
[2018-05-11] MEDS: ASPirin 81 mg TAB PO SCH (10:31)
[2018-05-11] MEDS: FUROSEMIDE 40 MG TAB PO SCH (10:32)
[2018-05-11] MEDS: CARVEDILOL 3.125 MG TAB PO SCH ×2 (10:33→22:07)
[2018-05-11] MEDS: LISINOPRIL 20 MG TAB PO SCH (10:33)
--- NOTE | 2018-05-11 10:35 | NUR ---
was at bedside - Dr. Jeronimo
--- NOTE | 2018-05-11 10:42 | NUR ---
Patient requesting to speak with his sister This RN called Neena, patient's sister, and transferred to phone call to bedside.
--- NOTE | 2018-05-11 11:53 | NUR ---
Patient's girlfriend called for update password obtained. Update given.
[2018-05-11 11:54] VITALS: BP 158/99
--- NOTE | 2018-05-11 13:40 | NUR ---
Patient requesting to speak with his sister Endorsed task to MALACHI Nava, to call patient's sister and transfer the phone call to the patient.
--- NOTE | 2018-05-11 15:23 | NUR ---
RE: ordered back brace Ordered back brace delivered to bedside. This RN educated the patient on the ordered back brace. Patient verbalized understanding.
--- NOTE | 2018-05-11 15:25 | NUR ---
Patient requesting to speak with his sister This RN called Neena, patient's sister. No answer. Voicemail left.
--- NOTE | 2018-05-11 15:27 | NUR ---
Educated patient on pressure ulcer prevention Patient able to turn self independently. This RN asked the patient if he needed assistance at this time with turning. Patient denied needing assistance. Educated patient on pressure ulcer prevention and maintaining skin integrity. Patient verbalized understanding. Patient is A&Ox4 at this time.
--- NOTE | 2018-05-11 15:55 | NUR ---
Visitors at bedside Patient's sister +2 additional visitors are at bedside. Patient's sister, Neena, updated on POC.
--- NOTE | 2018-05-11 16:15 | NUR ---
RE: Ortho - Dr. Sergio Hill was at bedside. This RN informed the MD that Dr. Jeronimo had contacted Dr. Arias for the consult. MD verbalized understanding.
[2018-05-11 16:37] VITALS: BP 145/93
--- NOTE | 2018-05-11 16:38 | NUR ---
Patient medicated for pain per MD- bed alarm on Patient is A&Ox4 at this time. Pain medication administered per MD's orders. VS stable. Bed alarm on for safety. Call light within reach. Will continue to monitor q1hr & PRN. No visitors at bedside at this time.
[2018-05-11] MEDS: CALCIUM W/VIT D (600MG/400IU) TAB PO SCH (18:38)
[2018-05-11] MEDS: ATORVASTATIN 20 MG TAB PO SCH (18:38)
--- NOTE | 2018-05-11 18:43 | NUR ---
End of shift patient resting in bed with even and unlabored respirations on 2LPM NC placed in his mouth. Fall precautions in place. Patient educated on the need to turn frequently to prevent pressure ulcers. Patient verbalized understanding. Fall precautions in place with call light within reach. Bed alarm on for safety. Bilateral SCDs in place per MD's order. Patient is A&Ox4 at this time. Will endorse care to RN.
--- NOTE | 2018-05-11 19:10 | NUR ---
OPENING SHIFT NOTE Patient resting in bed with even and unlabored respirations on 2LPM NC placed in nose. Patient Saturation levels 95%. Reinforced patient to maintain oxygen on at all times. Family members at bedside. Fall precautions in place. HOB elevated 2 x side rails up, bed locked and in lowest position, bed alarm on. Patient educated on the need to turn frequently to prevent pressure ulcers. Patient verbalized understanding. Bilateral SCDs in place per MD's order. Patient tolerating SCD's well. Patient is A&Ox4 at this time. will continue to monitor pt. .
[2018-05-11 21:49] VITALS: BP 139/68
[2018-05-12] MEDS: MORPHINE SULF INJ 2 MG/ML SYRINGE 1ML IV PRN ×2 (00:14→15:25)
[2018-05-12] MEDS ORDERED: LACTULOSE 20Gm/30ML SOLN PO ONE ×2 (00:30→10:30)
--- NOTE | 2018-05-12 00:37 | NUR ---
SPOKE WITH HOSPITALIST Spoke with hospitalist pt has not had a bm since the 05/09 , pt feels discomfort feels the need to go but has been unable to go, will continue to monitor pt.
[2018-05-12] MEDS: ALBUTEROL SULF 2.5 MG/0.5ML(0.5%) NEB SOLN NEB SCH ×4 (00:55→19:39)
[2018-05-12] MEDS: IPRATROPIUM BROM 0.5 MG/2.5ML INH SOL NEB SCH ×5 (00:55→20:09)
--- NOTE | 2018-05-12 03:04 | NUR ---
PT ROUNDS PT resting SPO2 98%, HR 86. will continue to monitor pt.
[2018-05-12 05:31] VITALS: BP 126/59
--- NOTE | 2018-05-12 06:08 | NUR ---
PT ROUNDS PT attempted to have a bm, but was unsuccessful. will continue to monitor pt.
--- NOTE | 2018-05-12 06:12 | NUR ---
PAGED RT Pt requesting a breathing treatment, will continue to monitor pt
[2018-05-12 07:02] LABS: Calcium 8.2 mg/dL (8.5-10.1)
--- NOTE | 2018-05-12 08:00 | NUR ---
Opening Shift Note Assumed care of patient, awake and alert. No S/S of distress/SOB or pain. Instructed on POC and to call for assist PRN, will continue to monitor for changes Q1hr and PRN. Quintana catheter present, hanging to gravity and free of kinks. Patient is on 2liters nasal cannula. Patient is saturating at 95%. Bilateral SCDs in place per MDs order. Bed is in the lowest position and call light within reach.
[2018-05-12 09:00] VITALS: BP 168/96
[2018-05-12] MEDS: CALCIUM W/VIT D (600MG/400IU) TAB PO SCH ×2 (09:24→18:18)
[2018-05-12] MEDS: ASPirin 81 mg TAB PO SCH (09:27)
[2018-05-12] MEDS: DOCUSATE SOD 100 MG CAP PO SCH ×2 (09:27→21:31)
[2018-05-12] MEDS: CARVEDILOL 3.125 MG TAB PO SCH ×2 (09:28→21:31)
[2018-05-12] MEDS: FUROSEMIDE 40 MG TAB PO SCH (09:28)
[2018-05-12] MEDS: LISINOPRIL 20 MG TAB PO SCH (09:29)
--- NOTE | 2018-05-12 11:00 | NUR ---
HOLD P.T. UNTIL BACK BRACE AND ANKLE SPLINT CAN BE APPLIED.
[2018-05-12 13:00] VITALS: BP 134/88
[2018-05-12 17:00] VITALS: BP 153/90
--- NOTE | 2018-05-12 18:17 | NUR ---
Right ankle splint placed by [facility] ortho patient tolerated well continue to monitor
[2018-05-12] MEDS: ATORVASTATIN 20 MG TAB PO SCH (18:18)
[2018-05-12 21:58] VITALS: BP 169/96
--- NOTE | 2018-05-12 23:18 | NUR ---
SHIFT OPENING NOTE Assumed care of patient, awake and alert and oriented x4. No S/S of distress/SOB or pain. Instructed on POC and to call for assist PRN, call light within reach. Side rails up x2. bed in lowest, locked position. nonskid socks on. bed alarm on. Right ankle splint in place and intact. will continue to monitor for changes Q1hr and PRN. Signed: 05/12/18 at 2320 by KETAN WEST SN <Co-Signature Required> Co-Signed: 05/12/18 at 2320 by Devonte Perez RN
[2018-05-13 05:23] VITALS: BP 147/90
[2018-05-13] MEDS: IPRATROPIUM BROM 0.5 MG/2.5ML INH SOL NEB SCH ×3 (06:06→18:55)
[2018-05-13] MEDS: ALBUTEROL SULF 2.5 MG/0.5ML(0.5%) NEB SOLN NEB SCH ×4 (06:06→18:55)
--- NOTE | 2018-05-13 07:50 | NUR ---
Patient in bed, awake, oriented x4. NS drip tubing not connected, right foot on splint, on Quintana catheter draining mar urine, left leg on SCD. Bed alarm on.
--- NOTE | 2018-05-13 08:20 | NUR ---
Patient stated he wants to go home. Explained to patient there's an order for Stress Test on Tuesday for Pre Op clearance.
[2018-05-13] MEDS: CALCIUM W/VIT D (600MG/400IU) TAB PO SCH ×2 (08:27→18:00)
--- NOTE | 2018-05-13 08:40 | NUR ---
Family member at bedside.
[2018-05-13 09:00] VITALS: BP 137/62
[2018-05-13] MEDS: MORPHINE SULF INJ 2 MG/ML SYRINGE 1ML IV PRN ×2 (09:11→15:07)
--- NOTE | 2018-05-13 09:11 | NUR ---
Patient stated his right foot pain level at 9/10 at this time. Morphine Sulf IVP given as ordered.
[2018-05-13] MEDS: ASPirin 81 mg TAB PO SCH (09:12)
[2018-05-13] MEDS: LACTULOSE 20Gm/30ML SOLN PO SCH (09:12)
[2018-05-13] MEDS: DOCUSATE SOD 100 MG CAP PO SCH ×2 (09:12→21:50)
[2018-05-13] MEDS: LISINOPRIL 20 MG TAB PO SCH (09:13)
[2018-05-13] MEDS: CARVEDILOL 3.125 MG TAB PO SCH ×2 (09:14→21:50)
[2018-05-13] MEDS: FUROSEMIDE 40 MG TAB PO SCH (09:14)
--- NOTE | 2018-05-13 10:40 | NUR ---
Respiratory Therapist Earl at bedside.
--- NOTE | 2018-05-13 11:40 | NUR ---
Dr. Bailey came over to see the patient for Neurology. spoke with Respiratory Therapist Earl.
--- NOTE | 2018-05-13 11:58 | NUR ---
Nutrition Assessment Notes please see attached link for complete assessment Est. Needs ABW [id number] kcal (23-25 kcal/kgBW), 102-112 gms pro (1.0-1.1 gms/kgBW). Will continue to monitor pertinent labs and reassess nutrient needs prn Addendum: 05/13/18 at [address] Amended: Links added.
--- NOTE | 2018-05-13 12:30 | NUR ---
Assisted the patient with bedpan.
--- NOTE | 2018-05-13 12:40 | NUR ---
Bedpan removed, no stools. Patient passed gas.
--- NOTE | 2018-05-13 12:40 | NUR ---
Patient wants to go home.
[2018-05-13 13:00] VITALS: BP 112/61
--- NOTE | 2018-05-13 13:16 | NUR ---
Dr. Diallo at bedside. Patient dangling his right foot (on splint) on the side of the bed. Patient insisted of going home. MD explained to patient the risks and benefits of leaving the hospital against medica advice (AMA). Patient verbalized "I don't know."
--- NOTE | 2018-05-13 14:50 | NUR ---
Patient is upset, asking why his right foot is not fixed yet. Explained to the patient that there's an order for Stress Test to be done on Tuesday to get a Cardiac clearance, that a Sliver Machine Operator has to clear him before possible surgery. Patient insisted of going home. Explained to the patient the risks and benefits of leaving the hospital against medical advice (AMA), patient verbalized "Just leave me alone."
--- NOTE | 2018-05-13 14:55 | NUR ---
Patient sitting on the edge of the bed. Patient went back to lay down in bed. Bed alarm on.
--- NOTE | 2018-05-13 15:07 | NUR ---
Patient stated his right foot in pain. O2 Sat = 96% on room air. Morphine Sulf 2 mg IVP given for severe pain as ordered. On continuous O2 saturation monitoring.
--- NOTE | 2018-05-13 16:55 | NUR ---
Patient arguing with somebody on his cellphone.
[2018-05-13 17:00] VITALS: BP 133/72
--- NOTE | 2018-05-13 17:00 | NUR ---
PT HAS REFUSED ALL DAY TO HAVE SHEETS CHANGED RN NOTIFIED.
[2018-05-13] MEDS: ATORVASTATIN 20 MG TAB PO SCH (18:00)
--- NOTE | 2018-05-13 18:00 | NUR ---
Patient's sister called.
--- NOTE | 2018-05-13 18:05 | NUR ---
Patient is frustrated, angry that somebody's trying to scam his house, he wants to call his sister but he's recharging his cellphone, he wants to go home, but patient refused to leave against medical advice (AMA). Explained to patient if he's thinking about hurting somebody at this time, he has Haldol IM for agitation. Patient not attempting to hurt anybody. Patient asked me to leave him alone, refused to take his medications for 6:00 pm.
--- NOTE | 2018-05-13 18:15 | NUR ---
Paged Hospitalist rn infusion.
--- NOTE | 2018-05-13 18:17 | NUR ---
Sd Hdz. COPY EDITOR called, made aware patient is anxious, but no anxiety medication, only Haldol IM for agitation, patient was yelling but not attempting to hurt anyone. COPY EDITOR ordered Xanax 0.25 mg Q8 PRN for anxiety.
[2018-05-13] MEDS: ALPRAZolam 0.25 MG TAB PO PRN (18:36)
--- NOTE | 2018-05-13 18:36 | NUR ---
Xanax 0.25 mg PO given for anxiety. Patient has a visitor at bedside.
--- NOTE | 2018-05-13 21:09 | NUR ---
PT REFUSED TO GO ON BIPAP FOR TONIGHT. PT IS AWAKE AND ALERT, SAT 95% ON RA
[2018-05-13 22:00] VITALS: BP 149/96
[2018-05-14 05:14] LABS: Basophils # (auto) 0.1 uL; Basophils % (auto) 0.9 % (0.0-2.0); Eosinophils # (auto) 0.4 uL; Eosinophils % (auto) 5.6 % (0.0-7.0); Hematocrit 43.8 % (41.0-53.0); Hemoglobin 15.2 g/dL (13.5-17.5); Lymphocytes # (auto) 1.3 uL; Mean Corpuscular Hemoglobin 29.8 pg (28.0-32.0); Mean Corpuscular Hgb Conc. 34.6 g/dL (32.0-36.0); Mean Corpuscular Volume 86.3 fL (80.0-100.0); Monocytes # (auto) 0.8 uL; Monocytes % (auto) 10.5 % (0.0-12.0); Neutrophils # (auto) 5.3 uL; Nucleated Red Blood Cells % 0.1 %; Platelet Count (auto) 191 10^3/uL (140-450); Red Blood Cells 5.08 10^6/uL (4.5-5.90); Red Cell Distribution Width 14.1 % (11.8-14.3); White Blood Cell 7.9 10^3/uL (4.4-10.8)
[2018-05-14 05:34] LABS: BUN/Creatinine Ratio 25.9; Calcium 8.8 mg/dL (8.5-10.1)
[2018-05-14 06:00] VITALS: BP 140/86
[2018-05-14] MEDS: ALBUTEROL SULF 2.5 MG/0.5ML(0.5%) NEB SOLN NEB SCH ×4 (07:03→22:15)
[2018-05-14] MEDS: IPRATROPIUM BROM 0.5 MG/2.5ML INH SOL NEB SCH ×4 (07:03→22:15)
--- NOTE | 2018-05-14 07:50 | NUR ---
Patient sitting in bed, awake, oriented x4. No acute distress noted. Right foot on splint, clean, dry and intact. On Quintana catheter draining mar urine. With bedpan if needed.
[2018-05-14] MEDS: MORPHINE SULF INJ 2 MG/ML SYRINGE 1ML IV PRN ×2 (08:53→20:32)
[2018-05-14] MEDS: LACTULOSE 20Gm/30ML SOLN PO SCH (08:53)
--- NOTE | 2018-05-14 08:53 | NUR ---
Patient stated his right foot pain level at 8 to 9/10 at this time. Morphine Sulf 2 mg IVP given as ordered. Girlfriend at bedside.
[2018-05-14] MEDS: FUROSEMIDE 40 MG TAB PO SCH (08:55)
[2018-05-14] MEDS: DOCUSATE SOD 100 MG CAP PO SCH ×2 (08:55→21:51)
[2018-05-14] MEDS: LISINOPRIL 20 MG TAB PO SCH ×2 (08:55→10:00)
--- NOTE | 2018-05-14 08:55 | NUR ---
Girlfriend asked if the doctor can sign the form that she will have the authority to make decisions for the patient. Explained to girlfriend that the patient will make the decision if he will give her the power of health care attorney (POA).
[2018-05-14] MEDS: CALCIUM W/VIT D (600MG/400IU) TAB PO SCH ×2 (08:56→17:53)
[2018-05-14] MEDS: CARVEDILOL 3.125 MG TAB PO SCH ×3 (08:56→21:47)
[2018-05-14] MEDS: ASPirin 81 mg TAB PO SCH (08:56)
[2018-05-14 09:00] VITALS: BP_SYST 124; BP_SYST 153; BP_DIAS 101; BP_DIAS 81
[2018-05-14] MEDS ORDERED: MORPHINE SULFATE 4 MG/ML SYR/VIAL IV PRN (09:45)
[2018-05-14] MEDS ORDERED: HYDROcodone-ACET 5/325MG TAB PO PRN (09:45)
[2018-05-14] MEDS ORDERED: LISINOPRIL 20 MG TAB PO SCH (10:00)
--- NOTE | 2018-05-14 11:30 | NUR ---
PT DECLINED OUT OF BED
[2018-05-14 13:00] VITALS: BP 124/90
--- NOTE | 2018-05-14 13:05 | NUR ---
Assisted the patient with bedpan.
[2018-05-14 13:21] VITALS: BP 124/90
--- NOTE | 2018-05-14 13:25 | NUR ---
Patient had a bowel movement on bedpan as reported by DREW Covarrubias.
--- NOTE | 2018-05-14 16:20 | NUR ---
Patient is lethargic, heart rate at 64, O2 Sat = 94% on O2 at 2 LPM.
--- NOTE | 2018-05-14 16:20 | NUR ---
Patient has periods of forgetfulness, does not know where he is. Reoriented the patient that he is at [facility].
--- NOTE | 2018-05-14 16:32 | NUR ---
Paged Dr. Jeronimo. Waiting for MD to call back.
--- NOTE | 2018-05-14 16:38 | NUR ---
Dr. Jeronimo called back. made aware that patient has periods of forgetfulness. Dr. Jeronimo ordered urine drug screen.
--- NOTE | 2018-05-14 16:45 | NUR ---
About 950 ml of clear, mar urine emptied from the Quintana catheter bag.
[2018-05-14 17:00] VITALS: BP 143/94
--- NOTE | 2018-05-14 17:00 | NUR ---
WENT IN PTS ROOM TO TAKE 1700 VITAL SIGNS. PATIENT WAS ON THE PHONE ASKING WHERE HE WAS TO HIS FAMILY MEMBER. HE TOLD ME HE WAS AT HOME AND NOT IN THE HOSPITAL.ASSUMED HE WAS LETHARGIC FROM PAIN MEDS BUT LLUVIA EPPERSON SAID SHE DIDNT GIVE ANY. PATIENT IN B BED SAID HE HE OVER HEARD HIS FAMILY SAY THAT THEY WERE GONNA LEAVE HIM DRUGS TO PUT IN HIS COFFEE. LLUVIA EPPERSON NOTIFIED AND AMALIA DINH NOTIFIED.
--- NOTE | 2018-05-14 17:05 | NUR ---
Urine specimen sent to the Laboratory.
--- NOTE | 2018-05-14 17:10 | NUR ---
Patient is lethargic, pupils at 4mm, asking for cigarettes, heart rate on Telemetry reading at 65, O2 Sat at 96% on O2 at 2 LPM. Explained to patient he cannot smoke cigarettes inside the hospital. Patient's right foot on splint, unable to walk. Bed alarm on. Girlfriend and two visitors at bedside.
--- NOTE | 2018-05-14 17:30 | NUR ---
Called Laboratory to follow up the urine drug screen results. Tech said they received the urine specimen.
--- NOTE | 2018-05-14 17:50 | NUR ---
Patient sitting in bed with dinner tray at bedside table. Girlfriend feeding the patient.
[2018-05-14] MEDS: ATORVASTATIN 20 MG TAB PO SCH (17:53)
[2018-05-14 18:28] LABS: Alcohol, Urine < 3.0 mg/dL (0-5); Amphetamine Screen, Urine POSITIVE (NEGATIVE); Barbiturate Scree,Urine NEGATIVE (NEGATIVE); Benzodiazephine Screen, Urine NEGATIVE (NEGATIVE); Cannabinoid Screen, Urine NEGATIVE (NEGATIVE); Cocaine Screen, Urine NEGATIVE (NEGATIVE); Opiate Scree,Urine NEGATIVE (NEGATIVE); Phencyclidine Screen, Urine NEGATIVE (NEGATIVE)
--- NOTE | 2018-05-14 18:42 | NUR ---
Ur Amphetamines = Positive, as per Laboratory.
--- NOTE | 2018-05-14 18:46 | NUR ---
NPO after midnight for Cardiolite Multiple/Stress Test.
--- NOTE | 2018-05-14 20:00 | NUR ---
OPENING NOTE RECEIVED REPORT FROM DAYSHIFT RN. ASSUMING ROLE OF CARE OF PATIENT AT THIS TIME. PATIENT SHOWING NO SIGN OF DISTRESS, SHORTNESS OF BREATH, AND PATIENT DENIES ANY PAIN AT THIS TIME. PATIENT IS ALERT BUT APPEARS MILDLY CONFUSED. PATIENT STATES THAT HE NEEDS TO GET OUT OF HERE TO GET HIS LEG FIXED. REORIENTED PATIENT TO PLAN OF CARE FOR THE NIGHT AND CURRENTS PLANS FOR CARDIOLITE TEST AND POSSIBLE SURGERY. PATIENT VERBALIZES UNDERSTANDING. BED LOWERED, CALL LIGHT WITHIN REACH, AND PATIENT WILL BE ROUNDED ON EVERY HOUR AND NEEDED.
--- NOTE | 2018-05-14 20:32 | NUR ---
IV LINE LEAKING ATTEMPTED TO ADMINISTER PAIN MEDICATION. FOUND IV LEAKING. WILL ATTEMPT NEW IV LINE.
--- NOTE | 2018-05-14 22:07 | NUR ---
IV removal/ IV INSERTION IV DC'd with clean sterile technique, catheter fully intact. Pressure dressing applied to site. Patient tolerated well. IV access obtained, via clean sterile technique by inserting 20 gauge catheter at RIGHT FOREARM after 2 attempt(s). IV secured properly. No trauma to site. Patient tolerated well.
[2018-05-14 22:42] VITALS: BP 148/106
--- NOTE | 2018-05-14 22:55 | NUR ---
PATIENT REORIENTED PATIENT STATED THAT HE DOESN'T REMEMBER HOW HE GOT IN THIS ROOM. INFORMED PATIENT OF HIS ARRIVAL A FEW DAYS BACK. PATIENT STATES REMEMBERING WHEN SPLINT WAS PLACED BUT STILL APPEARS FORGETFUL. PATIENT STATED HE WOULD LIKE TO MEET OTHER PEOPLE IN THE HOSPITAL. PATIENT DOES NOT APPEAR ANXIOUS OR AGITATED. WILL CONTINUE TO MONITOR.
[2018-05-15] VITALS (7 sets, daily range): BP systolic 117–168; BP diastolic 79–99
[2018-05-15] MEDS: ALPRAZolam 0.25 MG TAB PO PRN (00:51)
--- NOTE | 2018-05-15 00:51 | NUR ---
PATIENT ANXIOUS PATIENT FOUND SHOUTING AND ASKING WHERE HIS PANTS WERE AND WHERE BETH WAS. PATIENT REORIENTED TO THE HOSPITAL. PATIENT APPEARS ANXIOUS AND CONFUSED AT THIS TIME. PATIENT GIVEN MEDICATION FOR ANXIETY. WILL CONTINUE TO MONITOR.
--- NOTE | 2018-05-15 01:45 | NUR ---
FOUND PATIENT ON GROUND BED ALARM SOUNDED AND FOUND PATIENT LYING ON THE FLOOR. PATIENT WAS CONFUSED DEMANDING TO HAVE HIS CLOTHES PUT ON. PATIENT STATES HE NEEDS TO GO TO THE [facility]CT[facility]. PATIENT PLACED BACK INTO BED AND REORIENTED TO THE HOSPITAL. VITALS RETAKEN. BP WAS 141/76, HEART RATE WAS 66. PULSE OX IS 95%. NO VISIBLE BRUISING NOTED AT THIS TIME. PATIENT HAS A RIGHT FRACTURE PLACED IN A SPLINT. HOSPITALIST TO BE PAGED AND INFORMED. MD CORTEZ WILL ALSO BE CALLED IN THE MORNING AND INFORMED OF THE OCCURRENCE. PATIENT PLACED ON SENSITIVE BED ALARM AND WILL BE CONTINUALLY MONITORED.
--- NOTE | 2018-05-15 05:00 | NUR ---
IV removal IV DC'd with clean sterile technique, catheter fully intact. Pressure dressing applied to site. Patient tolerated well. IV insertion IV access obtained, via clean sterile technique by inserting 20 gauge catheter at RIGHT AC after 1 attempt(s). IV secured properly. No trauma to site. Patient tolerated well.
[2018-05-15] MEDS: MORPHINE SULF INJ 2 MG/ML SYRINGE 1ML IV PRN ×3 (05:24→20:19)
--- NOTE | 2018-05-15 06:02 | NUR ---
MD CAMEJO CALLED ATTEMPTED TO CALL MD CAMEJO TO INFORM OF PATIENT'S OCCURRENCE LAST NIGHT. NO ANSWER. VOICEMAIL LEFT AND CALL BACK NUMBER PROVIDED. WILL ATTEMPT AGAIN AT A LATER TIME.
--- NOTE | 2018-05-15 06:18 | NUR ---
PATIENT IS LETHARGIC PATIENT IS ABLE TO ANSWER QUESTIONS AND DOES NOT APPEAR CONFUSED AT THIS TIME BUT APPEARS FATIGUED AND LETHARGIC. WILL CONTINUE TO MONITOR.
[2018-05-15] MEDS: ALBUTEROL SULF 2.5 MG/0.5ML(0.5%) NEB SOLN NEB SCH ×3 (06:30→18:20)
[2018-05-15] MEDS: IPRATROPIUM BROM 0.5 MG/2.5ML INH SOL NEB SCH ×3 (06:30→18:20)
--- NOTE | 2018-05-15 06:40 | NUR ---
MD CAMEJO CALLED ATTEMPTED TO REACH MD CAMEJO ONCE MORE. UNABLE TO CONNECT. VOICEMAIL LEFT AND CALL BACK NUMBER PROVIDED. WILL CONTINUE TO MONITOR PATIENT. PATIENT STILL APPEARS LETHARGIC BUT VITALS ARE STABLE. WILL CONTINUE TO MONITOR.
--- NOTE | 2018-05-15 06:46 | NUR ---
PATIENT IS ALERT AND ORIENTED TIMES 4. PATIENT STILL APPEARS FATIGUED BUT IS AWARE OF WHAT OCCURRED LAST NIGHT AND STATED THAT THEY WILL NOT PULL LINES OR ATTEMPT TO GET OUT OF BED. WILL CONTINUE TO MONITOR AND ENDORSE TO DAYSHIFT RN.
--- NOTE | 2018-05-15 07:20 | NUR ---
OPENING SHIFT NOTE ASSUMED CARE OF PATIENT FROM BELT OPERATOR RN ANNIE. PATIENT IS AWAKE AND ALERT X4. PATIENT HAS NO S/S OF DISTRESS/SOB OR PAIN. INSTRUCTED PATIENT ON POC, PATIENT VERBALIZED UNDERSTANDING. BED IS IN LOWEST POSITION WITH SIDE RAILS RAISED X2, BED WHEELS LOCKED, BED ALARM ON, AND CALL LIGHT WITHIN REACH. WILL CONTINUE TO MONITOR.
--- NOTE | 2018-05-15 07:31 | NUR ---
CLOSING NOTE ENDORSED CARE TO DAYSLUPIS RN. PATIENT IS ALERT AND ORIENTED AND RESTING AT BEDSIDE. MAURICIO MADE AWARE OF CALL MADE TO DR. CAMEJO.
[2018-05-15] MEDS: CALCIUM W/VIT D (600MG/400IU) TAB PO SCH ×2 (08:00→18:22)
[2018-05-15] MEDS ORDERED: ADENOSINE 103 MG in GIVE UN-DILUTED 0 ML IV STA (08:22)
[2018-05-15] MEDS: DOCUSATE SOD 100 MG CAP PO SCH ×2 (10:00→21:57)
[2018-05-15] MEDS: ASPirin 81 mg TAB PO SCH (10:00)
[2018-05-15] MEDS: LACTULOSE 20Gm/30ML SOLN PO SCH (10:00)
[2018-05-15] MEDS: FUROSEMIDE 40 MG TAB PO SCH (10:00)
--- NOTE | 2018-05-15 10:17 | NUR ---
assessment Patient is a 62 year old male who is alert and oriented. Patients cognitive abilities are intact. Prior to admission patient lived home with his girlfriend Nerissa and functioned with her assistance. Per patient he will return home to his prior living arrangements post discharge and Nerissa will transport him home. Patient informed me he fell at home and fractured his ankle. Patients PCP is Dr Ornelas Patient has a wheelchair and cane. Mauri Perez from [facility] has seen patient for Medi-stevie. Patient should qualify for Medi-stevie. I informed patient he has a right to speak to a social media marketing manager regarding all care. I informed patient he has a right to participate in any and all discharge planning. Patient is aware of visiting hours on the hospital floor. I informed patient he has a right to privacy. Patient does not have a POA and advanced directive. I have offered patient information on POA and advanced directives. I informed the patient the advantages and benefits of having an Advanced Directive. Patient verbalized understanding and agreed to discharge plan. Addendum: 05/17/18 at 1041 by Carla BAKER Amended: Links added.
--- NOTE | 2018-05-15 15:05 | NUR ---
PATIENT BACK FROM STRESS TEST
[2018-05-15] MEDS: CARVEDILOL 3.125 MG TAB PO SCH ×2 (15:58→21:57)
[2018-05-15] MEDS: LISINOPRIL 20 MG TAB PO SCH (15:59)
--- NOTE | 2018-05-15 18:20 | NUR ---
Respiratory note: SCHEDULED MED NEB TX NOT GIVEN DUE TO PATIENT EATING DINNER. PATIENT APPEARED TO BE IN NO RESPIRATORY DISTRESS. PATIENT IS AWAKE AND ALERT, WILL CONTINUE SCHEDULED MED NEB TXS ORDERED.
[2018-05-15] MEDS: ATORVASTATIN 20 MG TAB PO SCH (18:22)
--- NOTE | 2018-05-15 19:21 | NUR ---
CLOSING SHIFT NOTE ENDORSED CARE TO JAILOR LLUVIA HOFF. PATIENT HAS NO S/S OF DISTRESS/SOB OR PAIN AT THIS TIME.
--- NOTE | 2018-05-15 20:00 | NUR ---
Opening Shift Note Assumed care of patient, awake and alert, oriented x4. No S/S of distress/SOB, c/o right ankle pain 10/28, will medicate as ordered and will reassess. Instructed on POC, verbalized understanding, call light within reach and encouraged to call for assist PRN, will continue to monitor for changes Q1hr and PRN. Side rails up x2, bed in lowest, locked position. Continue care.
--- NOTE | 2018-05-15 20:49 | NUR ---
CLEAR FOR SURGERY PAGED DR Alpesh CAMEJO THROUGH THE EXCHANGE TO INFORM MD THAT PER DR SANTIAGO'S NOTES, PT IS CLEARED FOR SURGERY. PT WILL BE KEPT NPO P MN, PT VERBALIZED UNDERSTANDING. CONTINUE CARE.
[2018-05-16 05:00] VITALS: BP 133/80
[2018-05-16] MEDS: ALBUTEROL SULF 2.5 MG/0.5ML(0.5%) NEB SOLN NEB SCH ×5 (05:40→23:56)
[2018-05-16] MEDS: IPRATROPIUM BROM 0.5 MG/2.5ML INH SOL NEB SCH ×5 (05:40→23:55)
--- NOTE | 2018-05-16 07:05 | NUR ---
OPENING SHIFT NOTE ASSUMED CARE OF PATIENT FROM SCIENCE CONSULTANT RN LUIS EDUARDO. PATIENT IS AWAKE AND ALERT X4. PATIENT HAS NO S/S OF DISTRESS/SOB OR PAIN. INSTRUCTED PATIENT ON POC, PATIENT VERBALIZED UNDERSTANDING. BED IS IN LOWEST POSITION WITH SIDE RAILS RAISED X2, BED WHEELS LOCKED, BED ALARM ON, AND CALL LIGHT WITHIN REACH. WILL CONTINUE TO MONITOR.
--- NOTE | 2018-05-16 07:31 | NUR ---
MD CAMEJO AT BEDSIDE. UPDATED MD ON PATIENT'S STATUS, MD IS AWARE. PER MD PATIENT WILL HAVE SURGERY TOMORROW. PER MD PATIENT NEEDS INSURANCE PRIOR TO PROCEDURE, INFORMED MD THERE IS A SOCIAL SERVICE CONSULT AND WILL CALL THE FREELANCE DISPLAYER.
[2018-05-16 08:15] VITALS: BP 152/71
[2018-05-16] MEDS: CALCIUM W/VIT D (600MG/400IU) TAB PO SCH ×2 (08:21→18:41)
--- NOTE | 2018-05-16 08:30 | NUR ---
SPOKE WITH PREP COOK LEESA. INFORMED HER PER PATIENT NEEDS INSURANCE BEFORE SURGERY IS DONE, LEESA IS AWARE AND PER LEESA MEDICAL IS BEING PROCESSED AND PATIENT CAN HAVE SURGERY WHILE IT IS BEING PROCESSED.
[2018-05-16 08:44] VITALS: BP 152/71
[2018-05-16 09:15] LABS: INR 1.05 (0.9-1.15); Prothrombin Time 11.2 sec (9.27-12.13)
[2018-05-16] MEDS: LACTULOSE 20Gm/30ML SOLN PO SCH (10:00)
[2018-05-16] MEDS: DOCUSATE SOD 100 MG CAP PO SCH ×2 (10:00→21:44)
[2018-05-16] MEDS: LISINOPRIL 20 MG TAB PO SCH (10:27)
[2018-05-16] MEDS: CARVEDILOL 3.125 MG TAB PO SCH ×2 (10:29→21:44)
[2018-05-16] MEDS: ASPirin 81 mg TAB PO SCH (10:29)
[2018-05-16] MEDS: FUROSEMIDE 40 MG TAB PO SCH (10:29)
[2018-05-16 12:11] VITALS: BP 123/85
[2018-05-16 18:17] VITALS: BP 151/93
--- NOTE | 2018-05-16 18:35 | NUR ---
Respiratory note: AFTER THE PT'S SCHEDULED MED NEB TX I ASKED HIM IF HE WISHED TO GO ON CPAP LATER TONIGHT AND HE STATED HE DID NOT. PT AWARE TO CALL FOR RT IF HE CHANGES HIS MIND AND WOULD LIKE TO GO ON AT ANYTIME TONIGHT.
[2018-05-16] MEDS: ATORVASTATIN 20 MG TAB PO SCH (18:41)
[2018-05-16] MEDS: MORPHINE SULF INJ 2 MG/ML SYRINGE 1ML IV PRN (18:42)
--- NOTE | 2018-05-16 19:20 | NUR ---
CLOSING SHIFT NOTE ENDORSED CARE TO REVENUE RESEARCH ANALYST LLUVIA HOFF. PATIENT HAS NO S/S OF DISTRESS/SOB OR PAIN AT THIS TIME.
--- NOTE | 2018-05-16 20:00 | NUR ---
Opening Shift Note Assumed care of patient, awake and alert, oriented x4. No S/S of distress/SOB or pain. Instructed on POC, aware he will be npo p mn for surgery in am. Per pt, md has not talked to him regarding surgery, will sign consents after speaking to md. Call light within reach and encouraged to call for assist PRN, will continue to monitor for changes Q1hr and PRN. Side rails up x2, bed in lowest, locked position. Continue care.
[2018-05-16] MEDS: LACTATED RINGER'S 1,000 ML IV SCH (21:45)
[2018-05-16 21:46] VITALS: BP 151/88
[2018-05-17] MEDS: MORPHINE SULF INJ 2 MG/ML SYRINGE 1ML IV PRN (03:06)
[2018-05-17 05:09] VITALS: BP 137/76
--- NOTE | 2018-05-17 06:39 | NUR ---
RECEIVED CALL FROM DR Alpesh CAMEJO. IS ASKING IF HAS PROCESSED INSURANCE APPLICATION FOR PT. INFORMED MD THAT IT IS CURRENTLY IN PROGRESS PER [employer] WORK[employer] AND SURGERY CAN BE DONE WHILE IT IS IN PROCESS. DR Alpesh CAMEJO WANTS TO BE CALLED BY SS WORKER AT [phone] TODAY. ALSO, PER , HE SPOKE TO PT ALREADY REGARDING SURGERY, INFORMED MD THAT PT DOES NOT REMEMBER. PER , HE WILL TALK TO PT AGAIN LATER TODAY BEFORE SURGERY. WILL ENDORSE TO DAY RN.
[2018-05-17] MEDS: IPRATROPIUM BROM 0.5 MG/2.5ML INH SOL NEB SCH ×4 (06:57→22:35)
[2018-05-17] MEDS: ALBUTEROL SULF 2.5 MG/0.5ML(0.5%) NEB SOLN NEB SCH ×4 (06:57→22:35)
--- NOTE | 2018-05-17 07:15 | NUR ---
OPENING SHIFT NOTE Patient is A/Ox4. Patient denies any pain at this time. No s/s of distress noted. Discussed POC with patient, patient verbalized understanding. Bed in lowest locked position, call light within reach, side rails up x2, sitter at bedside. Will continue to monitor.
[2018-05-17 08:00] VITALS: BP 137/76
[2018-05-17] MEDS: CALCIUM W/VIT D (600MG/400IU) TAB PO SCH ×2 (08:00→18:36)
[2018-05-17 08:48] VITALS: BP 128/82
[2018-05-17] MEDS ORDERED: MORPHINE SULF INJ 2 MG/ML SYRINGE 1ML IV PRN (09:45)
[2018-05-17] MEDS ORDERED: MORPHINE SULFATE 4 MG/ML SYR/VIAL IV PRN (09:45)
[2018-05-17] MEDS: DOCUSATE SOD 100 MG CAP PO SCH ×2 (10:00→21:34)
[2018-05-17] MEDS ORDERED: CARVEDILOL 3.125 MG TAB PO SCH (10:00)
[2018-05-17] MEDS: ASPirin 81 mg TAB PO SCH (10:00)
[2018-05-17] MEDS: LACTULOSE 20Gm/30ML SOLN PO SCH ×2 (10:00→21:35)
--- NOTE | 2018-05-17 10:39 | NUR ---
re-assessment Per consult meth use. Patient denies using meth. Patient was offered resources for substance abuse and he refused. Addendum: 05/17/18 at 1041 by Carla Avendaño Amended: Links added.
[2018-05-17 13:00] VITALS: BP 147/84
--- NOTE | 2018-05-17 13:02 | NUR ---
FAMILY AT BEDSIDE, THEY ARE ASKING WHY THE PATIENT IS HERE. EXPLAINED TO THEM THAT HIS ANKLE IS BROKEN AND HE NEEDS SURGERY. THEY ASKED "HE REALLY NEEDS IT OR CAN HE JUST GO HOME?". EDUCATED PATIENT THAT IF HIS ANKLE IS NOT FIXED PROPERLY THEN IT COULD HEAL WRONG AND CONTINUE TO HURT, BUT THE PATIENT HAS EVERY RIGHT TO LEAVE AMA. THEY SAID "OH WELL I GUESS HE SHOULD STAY THEN". SITTER AT BEDSIDE TO MONITOR PATIENT AND FAMILY INTERACTION.
[2018-05-17] MEDS: LACTATED RINGER'S 1,000 ML IV SCH ×2 (13:15→23:51)
--- NOTE | 2018-05-17 14:49 | NUR ---
Nutrition Follow-up Notes Wt.: 119.4 kg as of yesterday. Pt's asleep, no immediate family member at bedside during rounds this morning. Pt's no signs of distress noted earlier, currently NPO for ankle surgery today. Est. Needs ABW [id number] kcal (23-25 kcal/kgBW), 102-112 gms pro (1.0-1.1 gms/kgBW). Will continue to monitor pertinent labs and reassess nutrient needs prn Labs: No new labs since 05/14/18 pertinent labs wnl today except for BUN 29 H Skin: Kwabena scale 18, mod risk, skin intact per shift supervisor rn. GI: Pt's no bowel activity since 05/09/18 per shift supervisor rn. Noted pt's on Lactulose. PES: Altered nutrition related lab values r/t current/chronic medical condition aeb elev BUN hypocalcemia Obesity r/t food intake more than body requirement aeb 148% IBW, BMI 35.7 kg/m2 and increased body adiposity. Will continue to monitor NPO status, skin status, pertinent labs and weight trend. F/u in 2 to 3 days. Rec.: 1.) Resume oral diet (Cardiac: 2 gms Na, Low Chol, Low Fat diet) when medically appropriate. 2.) Continue close supervision during meals. 3.) Consider to continue monitoring pertinent labs prn. 4.) Refer pt to CDE/RD for further nutrition education and weight monitoring upon discharge. 5.) Continue current plan of care.
--- NOTE | 2018-05-17 15:01 | NUR ---
PAGED DR. CAMEJO, PATIENT'S FAMILY CONTINUES TO ASK WHEN THE DOCTOR IS GOING TO BE HERE AND WHEN THE SURGERY IS GOING TO BE. INFORMED THEM THE DOCTOR WILL BE HERE WHEN HE IS AVAILABLE. THEY KEEP COMING TO THE NURSES STATION ASKING OTHER NURSES FOR INFORMATION.
--- NOTE | 2018-05-17 16:10 | NUR ---
DR. CAMEJO AT BEDSIDE. PATIENT IS UPSET THAT THERE WILL BE NO SURGERY TODAY. PATIENT STATING "I JUST WANT TO LEAVE" "NO WONDER THEY CALL THIS [facility]" "THEY JUST KEEP ME HANGING ON DOING TEST AFTER TEST, THIS IS RIDICULOUS". INFORMED THE PATIENT THAT HE CAN LEAVE AMA. FAMILY ASKED FOR CRUTCHES AND PAIN MEDICINE. INFORMED THEM THAT HE WILL NOT RECEIVE ANYTHING IF HE LEAVES AMA. FAMILY STATES "THAT IS JUST RIDICULOUS". DR. CAMEJO INFORMED THEM THAT THE SAFEST THING FOR THE PATIENT IS TO WAIT TO BE DISCHARGED AND THE PATIENT WILL RECEIVE EVERYTHING HE NEEDS. PATIENT STATED THAT HE WILL STAY ONE MORE NIGHT.
[2018-05-17] MEDS: FUROSEMIDE 40 MG TAB PO SCH (16:43)
[2018-05-17] MEDS: ALPRAZolam 0.25 MG TAB PO PRN (16:43)
[2018-05-17] MEDS: LISINOPRIL 20 MG TAB PO SCH (16:43)
[2018-05-17] MEDS: ENOXAPARIN SOD 40 MG/0.4 ML SYRINGE SC SCH (16:53)
[2018-05-17 17:00] VITALS: BP 101/80
[2018-05-17] MEDS: ATORVASTATIN 20 MG TAB PO SCH (18:36)
[2018-05-17] MEDS: HYDROcodone-ACET 5/325MG TAB PO PRN (18:37)
--- NOTE | 2018-05-17 19:18 | NUR ---
GAVE REPORT TO LUIS EDUARDO TEIXEIRA
--- NOTE | 2018-05-17 20:00 | NUR ---
Opening Shift Note Assumed care of patient, awake and alert, oriented x4. No S/S of distress/SOB or pain. Instructed on POC, verbalized understanding. Call light within reach and encouraged to call for assist PRN, will continue to monitor for changes Q1hr and PRN. Side rails up x2, bed in lowest, locked position, bed alarm on. Continue care.
[2018-05-17] MEDS: CARVEDILOL 12.5 MG TAB PO SCH (21:34)
[2018-05-17 22:00] VITALS: BP 138/88
[2018-05-18 01:21] VITALS: BP 138/88
--- NOTE | 2018-05-18 02:39 | NUR ---
IV insertion IV access obtained, via clean sterile technique by inserting 20 gauge catheter at L HAND after 1 attempt(s). IV secured properly. No trauma to site. Patient tolerated well. NOTE: Pt accidentally pulled out R FA IV. Catheter intact, no trauma/bleeding from site.
[2018-05-18 05:00] VITALS: BP 130/85
--- NOTE | 2018-05-18 07:33 | NUR ---
Opening Shift Note Assumed care of patient, asleep on bed resting comfortably. No S/S of distress/SOB or pain. Call light within reach, 2 side rails up and bed in lowest position, sitter at bedside, will continue to monitor for changes Q1hr and PRN.
[2018-05-18] MEDS: ALBUTEROL SULF 2.5 MG/0.5ML(0.5%) NEB SOLN NEB SCH ×2 (07:43→12:27)
[2018-05-18] MEDS: IPRATROPIUM BROM 0.5 MG/2.5ML INH SOL NEB SCH ×2 (07:43→12:27)
--- NOTE | 2018-05-18 08:00 | NUR ---
pain pt complaining of right ankle pain and generalized pain, will give pain medication as ordered.
[2018-05-18] MEDS: CALCIUM W/VIT D (600MG/400IU) TAB PO SCH (08:05)
[2018-05-18] MEDS: HYDROcodone-ACET 5/325MG TAB PO PRN (08:08)
[2018-05-18] MEDS ORDERED: CAR125T PO (08:49)
[2018-05-18] MEDS ORDERED: ATOR20TA50 PO (08:49)
--- NOTE | 2018-05-18 08:55 | NUR ---
Pt seen by Dr. Jeronimo Per Dr. Jeronimo pt can go home with lumbar brace and will follow up with ortho. ordered to remove carrizales catheter.
[2018-05-18 09:00] VITALS: BP 125/81
[2018-05-18] MEDS: ENOXAPARIN SOD 40 MG/0.4 ML SYRINGE SC SCH (09:47)
[2018-05-18] MEDS: ASPirin 81 mg TAB PO SCH (09:48)
[2018-05-18] MEDS: FUROSEMIDE 40 MG TAB PO SCH (09:48)
[2018-05-18] MEDS: DOCUSATE SOD 100 MG CAP PO SCH (09:49)
[2018-05-18] MEDS: LACTULOSE 20Gm/30ML SOLN PO SCH (09:49)
[2018-05-18] MEDS: LISINOPRIL 20 MG TAB PO SCH (09:49)
[2018-05-18] MEDS: CARVEDILOL 12.5 MG TAB PO SCH (09:52)
--- NOTE | 2018-05-18 09:58 | NUR ---
Carrizales catheter dc'd Order to discontinue carrizales catheter. Carrizales dc'd with clean technique following deflation of balloon. Patient tolerated well with no complaints of pain. Continue care.
--- NOTE | 2018-05-18 10:30 | NUR ---
Pt urinated after carrizales catheter was removed.
[2018-05-18 10:48] VITALS: BP 125/81
--- NOTE | 2018-05-18 11:15 | NUR ---
Pt educated by [facility] on how to put on the lumbar brace and how to use the crutches. pt verbalized understanding.
--- NOTE | 2018-05-18 11:30 | NUR ---
core measure pt instructed to continue taking aspirin and atorvastatin to prevent stroke, pt verbalized understanding. pt given prescription for atorvastatin.
--- NOTE | 2018-05-18 12:55 | NUR ---
Discharge instructions given as ordered. Encourage to follow up with [facility] [phone], [address] [place] [id number]. YOU MAY ALSO FOLLOW UP WITH [facility] [id number] [place] [address] [place] [id number], CALL TO MAKE AN APPOINTMENT. TUESDAY-TUESDAY 8AM-5PM. NON WEIGHT BEARING OF RIGHT FOOT. KEEP SPLINT FOR 2 WEEKS, THEN FOLLOW UP WITH DR. CAMEJO AT THE OFFICE FOR CAST. PATIENT HAS WHEELCHAIR AT HOME. LUMBAR BRACE TO SUPPORT BACK. TAKE PRESCRIPTIONS ORDERED. DO NOT DRIVE WHILE TAKING NARCOTICS. All questions and concerns addressed. Patient verbalized understanding. Medication reconciliation form completed and copy given to patient. IV removed with catheter intact, pressure dressing applied. Telemetry unit returned to ICU. Patient taken to vehicle via wheelchair with all personal belongings, accompanied by staff and family member. No distress noted at time of departure.
== END 2018-05-18 12:55 | disposition home or self-care (01) | DRG 562 ==
LOC: ER 09:36 → EDBD 09:36 → TELE 15:05 → TELE-WESTW 20:14
PROVIDERS: ADMIT Nurse Practitioner Acute Care; ATTEND Internal Medicine
PROC: 5A09357 Assistance with Respiratory Ventilation, Less than 24 Consecutive Hours, Continuous Positive Airway Pressure (ICD-10-PCS; principal; 2018-05-10)
DX: S82.851A Displaced trimalleolar fracture of right lower leg, initial encounter for closed fracture (principal); I63.81 Other cerebral infarction due to occlusion or stenosis of small artery; I50.42 Chronic combined systolic (congestive) and diastolic (congestive) heart failure; R65.10 Systemic inflammatory response syndrome (SIRS) of non-infectious origin without acute organ dysfunction; G81.91 Hemiplegia, unspecified affecting right dominant side; I42.9 Cardiomyopathy, unspecified; G93.40 Encephalopathy, unspecified; M48.56XA Collapsed vertebra, not elsewhere classified, lumbar region, initial encounter for fracture; I25.10 Atherosclerotic heart disease of native coronary artery without angina pectoris; F15.10 Other stimulant abuse, uncomplicated; D72.829 Elevated white blood cell count, unspecified; E11.9 Type 2 diabetes mellitus without complications; E66.9 Obesity, unspecified; M19.90 Unspecified osteoarthritis, unspecified site; E78.5 Hyperlipidemia, unspecified; F17.210 Nicotine dependence, cigarettes, uncomplicated; I11.0 Hypertensive heart disease with heart failure; W18.39XA Other fall on same level, initial encounter; J44.9 Chronic obstructive pulmonary disease, unspecified; K59.00 Constipation, unspecified; M48.061 Spinal stenosis, lumbar region without neurogenic claudication; Z79.82 Long term (current) use of aspirin; Z79.899 Other long term (current) drug therapy; Z80.0 Family history of malignant neoplasm of digestive organs; Z80.1 Family history of malignant neoplasm of trachea, bronchus and lung; I25.2 Old myocardial infarction; Y93.89 Activity, other specified; Y92.89 Other specified places as the place of occurrence of the external cause; Y99.8 Other external cause status
CPT/HCPCS: 36415; 70450; 70551; 71045; 72131; 73610; 73700; 78452; 80048; 80053; 80061; 80307; 81001; 83735; 84443; 85025; 85610; 85730; 86850; 86900; 86901; 87040; 93005; 93017; 93306; 93886; 93971; 94640; 94660; 94761; 94762; 96374; 96375; G0378; J0153; J0696; J2405

== ENCOUNTER 2018-12-18 23:41 | Emergency (ER) | payer MEDICAID ==
[~2018-12-18 23:41] MED LIST changes: +ATOR20TA50 PO; +CAR125T PO; -CARV25TA55 PO; -LISI-646 PO; -SIMV-8 PO
[2018-12-18] MEDS ORDERED: EPINEPHrine HCL 1 MG/10 ML SYRG IV ONE (23:45)
[2018-12-18] MEDS ORDERED: SODIUM BICARBONATE 8.4% INJ 50ML SYRINGE IV ONE (23:45)
[2018-12-18] MEDS ORDERED: CALCIUM CHLOR(10%) 100MG/ML 10ML SYRINGE IV ONE (23:45)
[2018-12-18] MEDS ORDERED: SODIUM BICARBONATE 8.4% INJ 50ML SYRINGE ONE (23:57)
== END 2018-12-19 02:23 | disposition expired ==
LOC: ER 23:44
DX: I46.9 Cardiac arrest, cause unspecified (principal); I11.0 Hypertensive heart disease with heart failure; I50.9 Heart failure, unspecified; E78.5 Hyperlipidemia, unspecified; F17.210 Nicotine dependence, cigarettes, uncomplicated; Z79.899 Other long term (current) drug therapy
CPT/HCPCS: 31500; 92950; 99285; J0171